=== PATIENT | male | born 1965 | race Caucasian/White ===

== ENCOUNTER 2018-11-18 12:35 | Emergency (ER) | payer BC ==
[2018-11-18 12:59] VITALS: BP 126/78
--- NOTE | 2018-11-18 13:26 | UC ---
Cardiac HPI - HPI Summary HPI Summary: he has had two weeks of chest pain that is intermittent and random. It is not associated with exertion and is essentially always at rest. This started after walking up and jerking up suddenly in bed when the dog barked in the middle of the night. He in fact took his 2 year old to the movies and walked him up the stairs and 3 blocks two and from the car and had no increase in pain. he has yearly physical and there is no dm, high chol, htn, and he is not a smoker. No FH of CAD but there is fh of aneurysm. He denies sob, calf pain, fever, swelling. He has developed a cough over the last few days. Today he had an episode and wanted to get checked. Today it occurred while he was on the couch and it was 2-3 seconds of sharp pain. - History of Current Complaint Chief Complaint: UCChestPain Stated Complaint: CHEST PAIN Time Seen by Provider: 11/18/18 12:53 Hx Obtained From: Patient Onset/Duration: Lasting Weeks, Resolved Initial Severity: Moderate Current Severity: None Pain Intensity: 0 Chest Pain Location: Mid Sternal, Upper Sternal Aggravating Factor(s): Rest Alleviating Factor(s): Nothing Associated Signs & Symptoms: Positive: Chest Pain, Anxiety, Cough. Negative: Vision Changes, Recent Stress, Headaches, Numbness, Tingling, Weakness, Dizziness, SOB, Swelling, Syncope, Fever, Nausea/Vomiting, Back Pain, Abdominal Pain - Allergy/Home Medications Allergies/Adverse Reactions: Allergies Allergy/AdvReac Type Severity Reaction Status Date / Time environmental Allergy Eyes Uncoded 11/18/18 12:49 Itchy/Swollen/Red/Watery Home Medications: Home Medications Famotidine TAB* [Pepcid 20 MG TAB*] 20 mg PO EVERY OTHER DAY 11/18/18 [History Confirmed 11/18/18] Ibuprofen TAB* [Motrin TAB* 400 MG] 400 mg PO DAILY PRN 11/18/18 [History Confirmed 11/18/18] Omeprazole 40 mg PO EVERY OTHER DAY 11/18/18 [History Confirmed 11/18/18] PMH/Surg Hx/FS Hx/Imm Hx Previously Healthy: Yes - Surgical History Surgical History: Yes Surgery Procedure, Year, and Place: b[place] [facility] [place] Family History Known Family History: Positive: Other - aneurysm. - Social History Lives: With Family Alcohol Use: Occasionally Alcohol Amount: 3/WEEK Substance Use Type: None Smoking Status (MU): Former Smoker Length of Time of Smoking/Using Tobacco: 7 YRS AGO Have You Smoked in the Last Year: No When Did the Patient Quit Smoking/Using Tobacco: 25 YRS AGO Review of Systems All Other Systems Reviewed And Are Negative: Yes Cardiovascular: Positive: Chest Pain Physical Exam Triage Information Reviewed: Yes Appearance: Well-Appearing, No Pain Distress, Well-Nourished Vital Signs: Initial Vital Signs Temp 98.6 F 11/18/18 12:53 Pulse 63 11/18/18 12:53 Resp 18 11/18/18 12:53 BP 126/78 11/18/18 12:53 Pulse Ox 97 11/18/18 12:53 Vital Signs Reviewed: Yes Eyes: Positive: Conjunctiva Clear. Negative: Conjunctiva Inflamed ENT: Positive: Pharynx normal, Pharyngeal erythema, TMs normal. Negative: Nasal congestion, Nasal drainage, TM bulging, TM dull, TM red, Tonsillar swelling, Tonsillar exudate Neck: Positive: Supple, Nontender, No Lymphadenopathy Respiratory: Positive: Chest non-tender, Lungs clear, Normal breath sounds, No respiratory distress, No accessory muscle use. Negative: Respiratory distress, Decreased breath sounds, Accessory muscle use, Crackles, Rhonchi, Stridor, Expiration Cardiovascular: Positive: RRR, No Murmur, Pulses Normal Abdomen Description: Positive: Nontender, No Organomegaly, Soft. Negative: Distended, Guarding Musculoskeletal: Positive: Strength Intact, ROM Intact, No Edema Neurological: Positive: Alert, Muscle Tone Normal. Negative: Fatigued Psychological: Positive: Age Appropriate Behavior Skin: Negative: Rashes - Assessment/Plan Course Of Treatment: Atypical chest pain at rest lasting seconds. No radiation or signs of aneurysm at this time. Exam benign. No risk factors. he is reliable and we discussed the importance of f/u and stress test along with evaluation for genetic predisposition toward aneurysm like polycystic kidney. He does agree to call 911 for any worsening symptoms. He also agrees to start aspirin 81mg daily. I tried to call Dr. Bhandari three times to arrange close f/u but answering service did not tile picker. We will give him a call tomorrow to check on him and make sure he is arranging f/u with cardiology and I am placing referral in for him. Dr Gildardo Sanders patient registration representative kindly answered my all and agrees to see patient in close f/u for FH of aneurysm and pts chest pain. - Differential Diagnoses - Chest Pain Differential Diagnosis/HQI/PQRI: Acute CO, ACS, Chest Wall, GI Disease, Lower Respiratory Infection, Pulmonary Edema - Differential Diagnoses - Hypertension Differential Diagnosis/HQI PQRI: AAA, Angina, Hypertension, Hypertensive Crisis , Hypertensive Urgency, Hyperthyroidism, Migraine Headache, Myocardial Infarction - Clinical Impression Provider Diagnosis: Chest pain at rest Discharge - Sign-Out/Discharge Documenting (check all that apply): Patient Departure All imaging exams completed and their final reports reviewed: No Studies - Discharge Plan Condition: Good Disposition: HOME Patient Education Materials: Chest Pain (DC) Referrals: Maurice Fraga MD [Primary Care Provider] - Gildardo Sanders MD [Medical Doctor] - Additional Instructions: Start a daily over the counter aspirin 81mg. Call 911 for any worsening symptoms as we discussed. - Billing Disposition and Condition Condition: GOOD Disposition: Home
== END 2018-11-18 13:47 | disposition home or self-care (01) ==
LOC: UCCORT 12:35
DX: R07.89 Other chest pain (principal); I10 Essential (primary) hypertension; Z91.09 Other allergy status, other than to drugs and biological substances; Z87.891 Personal history of nicotine dependence
CPT/HCPCS: 93005; 99211; G0463